=== PATIENT | female | born 1995 ===

== ENCOUNTER 2019-08-22 08:13 | Inpatient (IN) | payer OTHER ==
[~2019-08-22] VITALS: Ht 157.5 cm; Wt 44.0 kg
--- NOTE | 2019-08-22 08:43 | NUR ---
PTE REFIERE QUE DESDE HACE VARIOS LEMOS IRVIN TENIDO DOLOR EN EL CUERPO Y DE CABEZ Y LC FIEBRE. QUE PIENSA QUE ES DENGUE.
--- NOTE | 2019-08-22 10:03 | NUR ---
PTE EVALUADA POR EL DR COREAS QUIEN ORDENA EL TX. MS Y BIRRIEL ORIENTA SOBRE EL MISMO, LO CUAL REFIERE ENTENDER Y REALIZA PRUEBA DE LABORATORIO RAN ORDEN MEDICA Y SIGUIENDO MEDIDAS ASEPTICAS.
--- NOTE | 2019-08-22 15:46 | NUR ---
SE RECIBE PTE ALERTA Y ORIENTADA EN LAS 3 ESFERAS EN CAMA CON BARANDAS ELEVADAS POR SEGURIDAD. BUEN PATRON RESPIRATORIO. RECIBIENDO IV'S 0.9NSS BAJANDO A 150ML/HR AREA ALANIS DE EDEMA Y ERITEMA. PENDIENTE CONSULTA CON DRA.SANDRA VALADEZ. SE MANTIENE EN OBSERVACION POR CAMBIOS.
--- NOTE | 2019-08-22 18:36 | NUR ---
SE NOTIFICA A SOBRE RESULTADO DE CBC ORDENADO POR ESTA.
== END 2019-08-25 19:54 | disposition home or self-care (01) | DRG 866 ==
LOC: ER 08:13 → MEDJ 19:27
PROVIDERS: ADMIT Internal Medicine
PROC: 8E0ZXY6 Isolation (ICD-10-PCS; principal; 2019-08-22)
DX: A90 Dengue fever [classical dengue] (principal); D69.49 Other primary thrombocytopenia